=== PATIENT | female | born 1940 | race Caucasian/White ===

== ENCOUNTER 2019-01-16 15:07 | Observation (INO) ==
[2019-01-16] MEDS ORDERED: ALUM/MAG/SIMETH/LIDO VISC 1:1 30 ML BOTTLE PO STA (15:39)
[2019-01-16] MEDS ORDERED: ASPIRIN 325 MG TABLET PO STA (15:39)
[2019-01-16] MEDS ORDERED: NITROGLYCERIN 2% OINT 1 INCH/GM PACK TOP STA (15:39)
[2019-01-16] MEDS ORDERED: ONDANSETRON 4 MG/2 ML VIAL IV STA (15:39)
[2019-01-16] MEDS ORDERED: MORPHINE 4 MG/1 ML VIAL IV STA (15:39)
[2019-01-16 15:50] LABS: Basophils % 0.4 % (0.0-0.8); Eosinophils % 0.3 % (0.00-10.9); Hematocrit 43.9 VOL% (35.7-47.0); Hemoglobin 13.9 GM/DL (12.0-16.0); Immature Granulocytes % 0.7 %; Immature Granulocytes Absolute 0.06 #; Lymphocytes # 1.2 10*3/uL (1.4-4.0); Lymphocytes % 13.1 % (21.3-54.2); Mean Corpuscular HGB Conc 31.7 GM/DL (32-36); Mean Corpuscular Volume 96.1 FL (87-102); Mean Platelet Volume 11.5 FL (9.6-12.0); Monocytes % 2.5 % (1.7-12.7); Platelet Count 254 T/CUMM (130-400); Red Blood Count 4.57 MC/CUMM (3.8-5.5); Red Cell Distribution Width 13.9 % (9.3-17.3); White Blood Count 9.1 T/CUMM (4-12)
[2019-01-16 16:02] LABS: INR 0.9
[2019-01-16 16:09] LABS: Albumin 4.5 G/DL (3.4-5.0); Bilirubin,Total 0.4 MG/DL (0.2-1.0); Calcium 9.8 MG/DL (8.5-10.1); Osmolality,Calculated 280.4 MOS/KG (273-304); Total Protein 7.7 G/DL (6.4-8.3)
[2019-01-16] MEDS ORDERED: ACETAMINOPHEN 325 MG TABLET PO PRN (17:17)
[2019-01-16] MEDS ORDERED: MAGNESIUM SULF RIDER 2 GM in PREMIX 1 EACH IV PRN ×2 (17:17→20:38)
[2019-01-16] MEDS ORDERED: ONDANSETRON 4 MG/2 ML VIAL IV PRN ×2 (17:17→20:38)
[2019-01-16] MEDS ORDERED: ZALEPLON 5 MG CAPSULE PO PRN (17:17)
[2019-01-16] MEDS ORDERED: MAGNESIUM SULF RIDER 4 GM in PREMIX 1 EACH IV PRN ×2 (17:17→20:38)
[2019-01-16] MEDS ORDERED: ENOXAPARIN 100 MG/ML SYRINGE SUBCUT STA (17:33)
[2019-01-16] MEDS ORDERED: SIMETHICONE CHEW 125 MG TABLET PO PRN (17:47)
[2019-01-16] MEDS ORDERED: CLORAZEPATE 3.75 MG TABLET PO PRN (17:48)
[2019-01-16 18:23] LABS: Apearance,Urine CLEAR (Clear); Bilirubin,Urine Negative (Negative); Blood, Urine Negative (Negative); Glucose,Urine (UA) Negative (Negative); Ketones,Urine 5 mg/dL (Negative); Mucus,Urine Occasional /LPF (Occasional); Nitrite,Urine Negative (Negative); Protein,Urine Negative; RBC,Urine 2 /HPF (0-4); Squamous Epithelial Cell,Urine Occasional /HPF (0-10); Urine Color Straw (Yellow); Urine Specific Gravity 1.006 (1.001-1.035); Urine Urobilinogen < 2.0 EU/DL (0.2-1.0)
[2019-01-16 18:53] LABS: WBC,Urine <1 /HPF (0-6)
[2019-01-16] MEDS: PANTOPRAZOLE 40 MG TABLET PO SCH (19:27)
[2019-01-16] MEDS ORDERED: MORPHINE 4 MG/1 ML VIAL IV PRN (20:38)
[2019-01-16] MEDS ORDERED: POTASSIUM CHLORIDE 20 MEQ TABLET PO PRN (20:38)
[2019-01-16] MEDS ORDERED: SODIUM CHLORIDE 0.9% 1,000 ML IV SCH (20:38)
[2019-01-16] MEDS: ENOXAPARIN 60 MG/0.6 ML SYRINGE SUBCUT SCH (21:55)
[2019-01-17 05:39] LABS: Basophils # 0.1 10*3/uL (0.0-0.2); Basophils % 0.8 % (0.0-0.8); Eosinophils # 0.1 10*3/uL (0.0-0.87); Eosinophils % 1.8 % (0.00-10.9); Hematocrit 37.5 VOL% (35.7-47.0); Hemoglobin 11.8 GM/DL (12.0-16.0); Immature Granulocytes % 0.8 %; Immature Granulocytes Absolute 0.05 #; Lymphocytes # 2.5 10*3/uL (1.4-4.0); Lymphocytes % 37.5 % (21.3-54.2); Mean Corpuscular HGB Conc 31.5 GM/DL (32-36); Mean Corpuscular Volume 96.2 FL (87-102); Mean Platelet Volume 11.5 FL (9.6-12.0); Monocytes % 9.6 % (1.7-12.7); Neutrophils % 49.5 % (38.7-73.9); Platelet Count 228 T/CUMM (130-400); White Blood Count 6.5 T/CUMM (4-12)
[2019-01-17 06:11] LABS: Albumin 3.3 G/DL (3.4-5.0); Bilirubin,Total 0.5 MG/DL (0.2-1.0); Calcium 9.3 MG/DL (8.5-10.1); Osmolality,Calculated 282.1 MOS/KG (273-304); Risk Ratio 2.31; Thyroid Stimulating Hormone 2.43 uIU/ml (0.358-3.74); VLDL CHOLESTEROL 16.2 MG/DL
[2019-01-17 07:16] LABS: Troponin I < 0.015 NG/ML (0.00-0.045)
[2019-01-17 08:01] VITALS: BP 141/66
[2019-01-17] MEDS ORDERED: hydroCHLOROthiazide 25 MG TABLET PO SCH ×2 (09:00)
[2019-01-17] MEDS ORDERED: amLODIPine 10 MG TABLET PO SCH ×2 (09:00)
[2019-01-17] MEDS ORDERED: predniSONE 5 MG TABLET PO SCH ×2 (09:00)
[2019-01-17] MEDS ORDERED: PANTOPRAZOLE 40 MG TABLET PO SCH (09:00)
[2019-01-17] MEDS ORDERED: ASPIRIN CHEW 81 MG TABLET PO ONE (09:00)
[2019-01-17] MEDS: ENOXAPARIN 60 MG/0.6 ML SYRINGE SUBCUT SCH (09:06)
[2019-01-17] MEDS: PANTOPRAZOLE 40 MG TABLET PO SCH (11:23)
== END 2019-01-17 11:24 | disposition home or self-care (01) ==
LOC: EDUNIT# → EDBD → N.ED 15:07 → N.EDINP 17:34 → INTOOBSV 17:34 → N.TELEN 17:52
PROVIDERS: ADMIT Internal Medicine Interventional Cardiology; ATTEND Internal Medicine Interventional Cardiology

== ENCOUNTER 2021-01-11 05:47 | Inpatient (IN) ==
[2021-01-11] MEDS ORDERED: propofoL 200 MG/20 ML VIAL IV ONE (06:19)
[2021-01-11] MEDS ORDERED: fentaNYL 100 MCG/2 ML VIAL ONE ×2 (06:19→08:22)
[2021-01-11] MEDS ORDERED: LIDOCAINE 2% 5 ML VIAL ONE (06:19)
[2021-01-11] MEDS ORDERED: MIDAZOLAM 2 MG/2 ML VIAL ONE (06:20)
[2021-01-11] MEDS ORDERED: VANCOMYCIN INJ 1,000 MG in SODIUM CHLORIDE 0.9% 250 ML IV ONE (06:30)
[2021-01-11] MEDS ORDERED: CLINDAMYCIN INJ 900 MG/50 ML PREMIX IV ONE (06:30)
[2021-01-11] MEDS ORDERED: ROPIVACAINE 0.5% 30 ML VIAL ONE (06:43)
[2021-01-11] MEDS ORDERED: DEXAMETHASONE 4 MG/1 ML VIAL ONE ×2 (06:43→08:17)
[2021-01-11] MEDS ORDERED: LIDOCAINE 1% 5 ML VIAL ONE (06:43)
[2021-01-11] MEDS ORDERED: LACTATED RINGERS 1,000 ML IV SCH (07:00)
[2021-01-11] MEDS ORDERED: FAMOTIDINE 20 MG/2 ML VIAL IV ONE (07:04)
[2021-01-11] MEDS ORDERED: BUPIVACAINE SPINAL 0.75% 2 ML AMP SPINAL ONE (07:10)
[2021-01-11] MEDS ORDERED: diphenhydrAMINE CAP 25 MG CAPSULE PO PRN (07:22)
[2021-01-11] MEDS ORDERED: TEMAZEPAM 7.5 MG CAPSULE PO PRN (07:22)
[2021-01-11] MEDS ORDERED: PROMETHAZINE 25 MG/1 ML VIAL IM PRN (07:22)
[2021-01-11] MEDS ORDERED: BISACODYL 10 MG SUPP RECTAL PRN (07:22)
[2021-01-11] MEDS ORDERED: MAGNESIUM HYDROXIDE SUSP 30 ML UDCUP PO PRN (07:22)
[2021-01-11] MEDS ORDERED: LACTULOSE 20 GM/30 ML UDCUP PO PRN (07:22)
[2021-01-11] MEDS ORDERED: CETIRIZINE 10 MG TABLET PO PRN (07:25)
[2021-01-11] MEDS ORDERED: MORPHINE 10 MG/1 ML VIAL IV PRN (07:40)
[2021-01-11] MEDS ORDERED: ePHEDrine 50 MG/ML VIAL ONE (07:54)
[2021-01-11] MEDS ORDERED: ONDANSETRON 4 MG/2 ML VIAL ONE (08:17)
[2021-01-11] MEDS ORDERED: KETOROLAC 30 MG/1 ML VIAL ONE (08:17)
[2021-01-11] MEDS ORDERED: ACETAMINOPHEN INJ 1,000 MG/100 ML VIAL IV ONE (08:17)
[2021-01-11] MEDS ORDERED: LACTATED RINGERS 1,000 ML IV ONE (08:18)
[2021-01-11] MEDS ORDERED: SODIUM CHLORIDE 0.9% 100 ML IV ONE (08:18)
[2021-01-11] MEDS ORDERED: TRANEXAMIC ACID 1,000 MG/10 ML VIAL ONE (08:18)
[2021-01-11] MEDS ORDERED: SEVOFLURANE 1 UNIT/15 MINUTE INH ONE (08:52)
[2021-01-11] MEDS ORDERED: MEPERIDINE 25 MG/1 ML VIAL ONE (09:27)
[2021-01-11] MEDS ORDERED: MEPERIDINE 25 MG/1 ML VIAL IV PRN (09:34)
[2021-01-11] MEDS: ONDANSETRON 4 MG/2 ML VIAL IV PRN ×2 (09:40→19:20)
[2021-01-11] MEDS: MORPHINE 2 MG/1 ML SYRINGE IV PRN ×2 (11:40→18:15)
[2021-01-11] MEDS: CLINDAMYCIN INJ 900 MG/50 ML PREMIX IV SCH ×2 (13:05→21:11)
[2021-01-11] MEDS: amLODIPine 5 MG TABLET PO SCH (20:18)
[2021-01-11] MEDS: FONDAPARINUX 2.5 MG/0.5 ML SYRINGE SUBCUT SCH (20:18)
[2021-01-11] MEDS: HYDROXYCHLOROQUINE 200 MG TABLET PO SCH (20:18)
[2021-01-11] MEDS: DOCUSATE SODIUM 100 MG CAPSULE PO SCH (20:19)
[2021-01-12 04:57] LABS: Basophils % 0.4 % (0.0-0.8); Eosinophils # 0.1 10*3/uL (0.0-0.87); Eosinophils % 0.6 % (0.00-10.9); Hematocrit 30.7 VOL% (35.7-47.0); Hemoglobin 9.7 GM/DL (12.0-16.0); Immature Granulocytes % 0.4 %; Immature Granulocytes Absolute 0.03 #; Lymphocytes # 1.2 10*3/uL (1.4-4.0); Lymphocytes % 14.8 % (21.3-54.2); Mean Corpuscular HGB Conc 31.6 GM/DL (32-36); Mean Corpuscular Volume 96.2 FL (87-102); Mean Platelet Volume 11.6 FL (9.6-12.0); Monocytes % 10.7 % (1.7-12.7); Neutrophils % 73.1 % (38.7-73.9); Platelet Count 194 T/CUMM (130-400); Red Blood Count 3.19 MC/CUMM (3.8-5.5); Red Cell Distribution Width 13.2 % (9.3-17.3); White Blood Count 8.3 T/CUMM (4-12)
[2021-01-12 05:27] LABS: Calcium 8.7 MG/DL (8.5-10.1); Osmolality,Calculated 275.5 MOS/KG (273-304); Potassium 4.2 MMOL/L (3.5-5.1)
[2021-01-12] MEDS: HYDROXYCHLOROQUINE 200 MG TABLET PO SCH ×2 (09:02→20:38)
[2021-01-12] MEDS: hydroCHLOROthiazide 25 MG TABLET PO SCH (09:02)
[2021-01-12] MEDS: DOCUSATE SODIUM 100 MG CAPSULE PO SCH ×2 (09:03→20:38)
[2021-01-12] MEDS: ONDANSETRON 4 MG/2 ML VIAL IV PRN ×2 (14:04→18:36)
[2021-01-12] MEDS ORDERED: oxyCODONE/ACETAMINOPHEN 5-325 MG TABLET PO PRN ×2 (14:56)
[2021-01-12] MEDS: amLODIPine 5 MG TABLET PO SCH (18:24)
[2021-01-12] MEDS: NAPROXEN 250 MG TABLET PO PRN (18:36)
[2021-01-12] MEDS: FONDAPARINUX 2.5 MG/0.5 ML SYRINGE SUBCUT SCH (20:38)
[2021-01-13] MEDS: NAPROXEN 250 MG TABLET PO PRN (06:27)
[2021-01-13] MEDS: hydroCHLOROthiazide 25 MG TABLET PO SCH (08:38)
[2021-01-13] MEDS: DOCUSATE SODIUM 100 MG CAPSULE PO SCH (08:38)
[2021-01-13] MEDS: HYDROXYCHLOROQUINE 200 MG TABLET PO SCH (08:39)
[2021-01-13 11:05] VITALS: BP 135/68
== END 2021-01-13 12:30 | disposition home health service (06) | DRG 470 ==
LOC: N.OR 05:47 → N.SDSINP 05:47 → N.3E 07:23
PROVIDERS: ADMIT Orthopaedic Surgery; ATTEND Orthopaedic Surgery